=== PATIENT | female | born 1930 | race Caucasian/White ===

== ENCOUNTER 2017-05-19 10:53 | Outpatient (CLI) | payer MEDICARE, OTHER ==
[~2017-05-19 10:53] MED LIST: ALBU18HF2 IH; DICL100G15 TOP; FENT1PAT7 TD; FURO-150 PO; INDO25CA PO; LEVO25TA50 PO; LIDO700A5 TOP; MEMA10TA PO; RISP0.257 PO; TRAM50TA2 PO
== END 2017-05-19 11:45 | disposition home or self-care (01) ==
LOC: ORTHO 10:53
PROVIDERS: ATTEND Nurse Practitioner Family
DX: S72.002D Fracture of unspecified part of neck of left femur, subsequent encounter for closed fracture with routine healing (principal); E03.9 Hypothyroidism, unspecified; F03.90 Unspecified dementia, unspecified severity, without behavioral disturbance, psychotic disturbance, mood disturbance, and anxiety; G89.29 Other chronic pain; I10 Essential (primary) hypertension; Z86.73 Personal history of transient ischemic attack (TIA), and cerebral infarction without residual deficits; Z88.5 Allergy status to narcotic agent; Z96.642 Presence of left artificial hip joint; X58.XXXD Exposure to other specified factors, subsequent encounter
CPT/HCPCS: 73502; 99212